=== PATIENT | female | born 1955 | race Two or more races ===

== ENCOUNTER 2025-01-04 23:33 | Emergency (ER) | payer MEDICARE, MEDICAID, SELFPAY ==
[2025-01-04 23:38] VITALS: BP 188/99; PULSE 84; RESP 18; TEMP 36.9; O2SAT 99
--- NOTE | 2025-01-05 00:15 | XR_ITS ---
EXAMINATION: PA chest single view TECHNIQUE: Upright PA chest single view Date and time: January 05, 2025, 0120 hours, comparison December 13, 2020 INDICATIONS: Upper chest pain and shortness of breath beginning 4 days ago FINDINGS: Normal heart size The lungs are clear. The osseous structures are intact IMPRESSION: No active disease
--- NOTE | 2025-01-05 00:15 | XR_ITS ---
Examination: CT brain head without contrast. 2-D sagittal coronal reconstructions Date and time of exam: January 05, 2025, 0030 hours INDICATIONS: Onset headache and hypertension today CTDI: vol (mGy): 41.50 DLP: (mGycm): 844 Technique: Multiple CT axial sections of the brain have been obtained, 5 mm slice thickness. Contrast has not been administered. 2-D sagittal, coronal reconstructions have been obtained Low dose protocols were performed. One or more of the following dose reduction techniques were used; automated exposure control, adjustment of the mA and/or KV according to patient size, use of iterative reconstruction technique. Findings: No significant ventricular enlargement. Intra-axial or extra-axial hemorrhage density is not seen. No mass effect or midline shift Basal cisterns are not remarkable. Fourth ventricle is midline. Cranial vault intact. Impression: Negative for acute hemorrhage, mass effect or midline shift Advise clinical correlation and follow-up accordingly
--- NOTE | 2025-01-05 00:15 | EKG_ITS ---
[facility] Test Date: 2025-01-05 Pat Name: JESÚS GAMBLE Department: Room: - Gender: Female [employer]: : 1955 Requested By: Juan Pickens Order Number: [id number] Reading MD: Juan Pickens Measurements Intervals [place] Rate: 72 P: 64 MO: 176 QRS: 22 QRSD: 92 T: 52 QT: 409 QTc: 450 Interpretive Statements SINUS RHYTHM Compared to ECG 05/04/2019 21:54:11 Incomplete right bundle-branch block no longer present /store/S0/[id number].pdf
--- NOTE | 2025-01-05 00:15 | PD.EDRME ---
Rapid Medical Screening Exam RME Arrival date/time: 01/04/25 23:33 69F with history of HTN presents to ED with elevated BP since last week as well as, LI starting yesterday. Patient also has some CP several days ago. Chief Complaint: General Adult/Misc Complain Vital signs: Vital Signs Temperature 98.4 F 01/04/25 23:38 Pulse Rate 84 01/04/25 23:38 Respiratory Rate 18 01/04/25 23:38 Blood Pressure 188/99 H 01/04/25 23:38 Pulse Oximetry (%) 99 01/04/25 23:38 Oxygen Delivery Method Room Air 01/04/25 23:38 Exam: CN II-XII grossly intact. Neg pronator drift test. Clinical Impression: hypertensive emergency/urgency vs LI vs brain bleed vs HTN
[2025-01-05 01:11] LABS: Basophils # (Auto) 0.0 Thou/mm3 (0.0-0.2); Basophils % (Auto) 1 % (0-2.5); Eosinophils # (Auto) 0.1 Thou/mm3 (0.0-0.5); Eosinophils % (Auto) 1 % (0-10); Hematocrit 40.6 % (36.0-46.0); Hemoglobin 13.5 g/dL (12.0-16.0); Immature Granulocytes Auto 0.01 Thou/mm3 (0.00-0.00); Lymphocytes # (Auto) 2.0 Thou/mm3 (1.0-4.8); Lymphocytes % (Auto) 31 % (10-50); Mean Corpuscular HGB Conc 33.3 g/dl (31.0-37.0); Mean Corpuscular Hemoglobin 28.7 pg (25.0-35.0); Mean Corpuscular Volume 86 fL (80-100); Monocytes # (Auto) 0.5 Thou/mm3 (0.0-0.8); Monocytes % (Auto) 8 % (0-12); Neutrophils # (Auto) 3.8 Thou/mm3 (1.8-7.7); Neutrophils % (Auto) 59 % (37-80); Nucleated Red Blood Cell # 0.00 Thou/mm3 (0.00-0.00); Nucleated Red Blood Cell % 0 /100 WBC (0); Platelet Count 260 Thou/mm3 (140-440); RDW Standard Deviation 39.9 fL (36.4-46.3); Red Blood Count 4.70 Miln/mm3 (4.00-5.20); White Blood Count 6.5 Thou/mm3 (3.6-11.0)
[2025-01-05 01:19] VITALS: BP 177/97; PULSE 65
[2025-01-05 01:26] LABS: Collection Type, Urine Clean Catch
[2025-01-05 01:33] LABS: Alanine Aminotransferase 9 U/L (10-49); Albumin, Serum 4.9 gm/dL (3.4-4.8); Albumin/Globulin Ratio 1.5 (1.2-2.2); Alkaline Phosphatase 64 U/L (46-116); Anion Gap 11 (7-16); Aspartate Amino Transferase 18 U/L (0-34); BUN/Creatinine Ratio 12 Ratio (12-20); Bilirubin,Total 0.8 mg/dL (0.3-1.2); Blood Urea Nitrogen 7 mg/dL (9-23); Calcium 9.9 mg/dL (8.3-10.6); Calcium (Corrected) 9.9 mg/dL (8.5-10.1); Carbon Dioxide 26.3 mMol/L (20.0-31.0); Chloride 95 mMol/L (98-107); Creatinine (Component) 0.6 mg/dL (0.6-1.3); Globulin 3.3 gm/dL (2.3-3.5); Glucose 110 mg/dL (74-106); Osmolality,Calculated 263 (275-295); Potassium 3.1 mMol/L (3.4-5.1); Sodium 132 mMol/L (136-145); Total Protein 8.2 gm/dL (5.7-8.2); Troponin I < 0.020 ng/mL (0.0-0.045); eGFR > 60 See Note
[2025-01-05 01:45] LABS: Bacteria,Urine Rare; Bilirubin,Urine Negative (Negative); Blood,Urine Negative (Negative); Clarity,Urine Clear (Clear/Hazy); Color,Urine Colorless (Lt Yel-Yel); Culture Indicated,Urine Not Indicated; Glucose, Urine Negative (Negative); Ketones,Urine Negative (Negative); Leukocyte Esterase,Urine Positive (Negative); Nitrite,Urine Negative (Negative); PH,Urine 7.0 (5.0-7.0); Protein,Urine Negative (Neg - Trace); RBC,Urine 1 /hpf (0-3); Specific Gravity,Urine 1.007 (1.001-1.035); Squamous Epithelial Cell,Urine 1 /hpf (0-5); Urobilinogen,Urine Negative mg/dL (0.0-1.0); WBC,Urine 3 /hpf (0-5)
--- NOTE | 2025-01-05 02:03 | PRELIM_ITS ---
CT scan of the head without intravenous contrast (axial sections with sagittal and coronal reformats) January 05, 2025 0036 hours Clinical history: Headache. No prior study is available for comparison. Findings: There is no evidence of intracranial hemorrhage, mass effect or midline shift. There are mild periventricular white matter hypodensities, likely representing chronic small vessel ischemia. There is mild volume loss. The calvarium is unremarkable. The mastoid air cells and the visualized paranasal sinuses are clear. Impression: No evidence of intracranial hemorrhage, mass effect or midline shift. Periventricular chronic small vessel ischemia and volume loss. Report Electronically Signed By: Twin Ashley 01/05/2025 2:02:29 AM [EST]
[2025-01-05 04:10] VITALS: BP 160/94; PULSE 67; RESP 18; TEMP 36.6; O2SAT 98
[2025-01-05 07:15] VITALS: BP 168/110; PULSE 61; RESP 16; O2SAT 97
--- NOTE | 2025-01-05 11:40 | PD.EDADULT ---
ED General RME/HPI General Chief complaint: General Adult/Misc Complain Stated complaint: HTN Time Seen by Provider: 01/05/25 06:21 Arrival date/time: 01/04/25 23:33 Limitations: no limitations RME / HPI RME / HPI narrative: 01/04/25 23:33 69F with history of HTN presents to ED with elevated BP since last week as well as, LI starting yesterday. Patient also has some CP several days ago. DR. SALAZAR MAIN ED EVALUATION: 69 year old female with history of hypertension presents to the ED for evaluation of elevated blood pressure today. Reportedly was at her PCP office today as a follow up after starting new blood pressure medication. However, noted blood pressure to be elevated and sent here for further evaluation. Accompanied by a headache this morning and chest pain yesterday that has since resolved. No other associated symptoms or complaints reported. Exam: CN II-XII grossly intact. Neg pronator drift test. Impression: hypertensive emergency/urgency vs LI vs brain bleed vs HTN Related Data Home Medications ?Medication ?Instructions ?Recorded ?Confirmed amlodipine 5 mg tablet 5 mg PO QDAY 12/14/20 12/14/20 Previous Rx's ?Medication ?Instructions ?Recorded benazepril 20 mg tablet 20 mg PO QDAY #30 tabs 12/16/20 Allergies Allergy/AdvReac Type Severity Reaction Status Date / Time No Known Allergies Allergy Verified 01/04/25 23:48 Review of Systems Review of Systems Systems Reviewed: All systems reviewed, normal except as documented Past Medical History Past Medical History CARDIAC: Positive Cardiac Disorders and Hypertension Family History FAMILY HISTORY: Positive Family Cardiac Disorders (mother-HTN) Social History SMOKING STATUS: Never smoker ED Exam General Limitations: Present no limitations General appearance: Present alert and in no apparent distress Head Head exam: Present atraumatic, normocephalic and normal inspection Eye Eye exam: Present normal appearance, PERRL and EOMI ENT ENT exam: Present normal exam, normal oropharynx and mucous membranes moist Neck Neck exam: Present normal inspection, full ROM and trachea midline Chest Chest inspection: Present normal inspection and symmetric chest wall rise Respiratory Respiratory exam: Present normal lung sounds bilaterally Cardiovascular Cardiovascular exam: Present regular rate, normal rhythm and normal heart sounds Abdominal Exam Abdominal exam: Present soft and normal bowel sounds Extremities Exam Extremities exam: Present normal inspection and full ROM Back Exam Back exam: Present normal inspection and full ROM Neurological Exam Neurological exam: Present alert, oriented X3 and CN II-XII intact Psychiatric Psychiatric exam: Present normal affect and normal mood Skin Skin exam: Present warm, dry, intact and normal color Course Quality Measures none Orders Category Date Time Status EKG (ED ONLY) *Do not use* NOW Care 01/05/25 00:[address] head/brain wo con Stat Exams 01/05/25 00:15 Completed EKG (ED Only) Stat Exams 01/05/25 00:15 Draft XR chest 1V portable Stat Exams 01/05/25 00:15 Completed CBC Stat Lab 01/05/25 00:41 Completed Comprehensive Metabolic Panel Stat Lab 01/05/25 00:41 Completed Troponin I Stat Lab 01/05/25 00:41 Completed Urinalysis, C/S if Indicated Stat Lab 01/05/25 01:20 Completed Potassium Chloride [K-Dur] Med 01/05/25 06:25 Discontinued 40 meq PO X1 ONE hydrALAZINE HCL [Apresoline] Med 01/05/25 00:19 Discontinued 25 mg PO X1 ONE Vital Signs Vital signs: Vital Signs Temperature 98.4 F 01/04/25 23:38 Pulse Rate 84 01/04/25 23:38 Respiratory Rate 18 01/04/25 23:38 Blood Pressure 188/99 H 01/04/25 23:38 Pulse Oximetry (%) 99 01/04/25 23:38 Oxygen Delivery Method Room Air 01/04/25 23:38 Pulse ox is 99% on room air which is adequate. Discharge Plan Plan Patient Disposition: HOME (Self Care) Patient condition on transfer: Stable Prescriptions/Referrals Prescriptions/Med Rec: No Action amlodipine 5 mg Tablet 5 mg PO QDAY benazepril 20 mg tablet 20 mg PO QDAY Qty: 30 0RF Referrals: Rosario Ward [Primary Care Provider] - In 1 week Problem List Clinical Impression: Hypertension, Acute hypokalemia Patient/Caregiver Discharge Instructions Discharge Activity: activity as tolerated Education Materials: Controlling High Blood Pressure, Blood Pressure Check Steps Additional Instructions: Follow-up with your commercial center manager tomorrow as scheduled. Continue your usual medications. Print Language: Russian Stand Alone Forms: Crystal Award Info., Patient Portal Info Letter MDM Narrative MDM hospital course (for use when minimal MDM required): Christin Yates am scribing for and in the presence of Dr. Salazar. Clinical Information Provided by: patient Medical Records reviewed [facility] Meds/Rx considered, not ordered None Labs/Rad/Tests considered, not ordered None Chronic Illness/Social Conditions which may negatively complicate care or outcome(s)-explain: None or not applicable EKG Interpretation EKG #1: EKG Interpretation: EKG @ 00:25 AM. Normal sinus rhythm, rate 77, no STEMI. Labs Lab(s) Interpretation(s): Potassium 3.1 and treated with potassium 40meq po. Imaging Imaging Interpretation(s): Ordering Physician: Juan Pickens PA-C Date of Service: 01/05/25 Procedure(s): XR chest 1V portable Accession Number(s): [id number] cc: Rosario Ward; Carlos Baldwin MD; Juan Pickens PA-C~ EXAMINATION: PA chest single view TECHNIQUE: Upright PA chest single view Date and time: January 05, 2025, 0120 hours, comparison December 13, 2020 INDICATIONS: Upper chest pain and shortness of breath beginning 4 days ago FINDINGS: Normal heart size The lungs are clear. The osseous structures are intact IMPRESSION: No active disease Dictated By: Carlos Baldwin MD Signed By: <Electronically signed by Carlos Baldwin MD in OV> 01/05/25 0605 Ordering Physician: Juan Pickens PA-C Date of Service: 01/05/25 Procedure(s): CT head/brain wo con Accession Number(s): [id number] cc: Rosario Ward; Carlos Baldwin MD; Juan Pickens PA-C~ Examination: CT brain head without contrast. 2-D sagittal coronal reconstructions Date and time of exam: January 05, 2025, 0030 hours INDICATIONS: Onset headache and hypertension today CTDI: vol (mGy): 41.50 DLP: (mGycm): 844 Technique: Multiple CT axial sections of the brain have been obtained, 5 mm slice thickness. Contrast has not been administered. 2-D sagittal, coronal reconstructions have been obtained Low dose protocols were performed. One or more of the following dose reduction techniques were used; automated exposure control, adjustment of the mA and/or KV according to patient size, use of iterative reconstruction technique. Findings: No significant ventricular enlargement. Intra-axial or extra-axial hemorrhage density is not seen. No mass effect or midline shift Basal cisterns are not remarkable. Fourth ventricle is midline. Cranial vault intact. Impression: Negative for acute hemorrhage, mass effect or midline shift Advise clinical correlation and follow-up accordingly Dictated By: Carlos Baldwin MD Signed By: <Electronically signed by Carlos Baldwin MD in OV> 01/05/25 0623 Medication Administration(s) Medication Administration History Discontinued Medications Hydralazine HCl (Hydralazine Hcl 25 Mg Tablet) 25 mg PO X1 ONE Stop: 01/05/25 00:20 Last Admin: 01/05/25 01:19 Dose: 25 mg Documented By: BHANU Comments: double verified medication with valeria rn, medication did not scan Potassium Chloride (Potassium Chloride 20 Meq Tabcr) 40 meq PO X1 ONE Stop: 01/05/25 06:26 Last Admin: 01/05/25 06:38 Dose: 40 meq Documented By: SYLVIA See above Diagnosis Diagnoses ruled out and/or further discussions: Hypertension acute hypokalemia
== END 2025-01-05 07:15 | disposition home or self-care (01) ==
PROVIDERS: Physician Assistant; Emergency Provider Family Medicine; PCP Physician Assistant
DX: E87.6 Hypokalemia (principal); I10 Essential (primary) hypertension
CPT/HCPCS: 36415; 70450; 71045; 80053; 81001; 84484; 85025; 93005; 99282; A9270